=== PATIENT | male | born 1995 | race Caucasian/White ===

== ENCOUNTER → 2021-07-20 | Outpatient (CLI) | payer OTHER ==
--- NOTE | 2021-07-20 14:25 | RAD ---
XR KNEE 3 VIEWS_RT 07/20/2021 Reason: PAIN AND SWELLING SUPERIOR TO BOLT, HX ACL AND BOLD REPAIR 2009 Comparison: None Technique: 3 views of the right knee Findings: There is prior history of ACL repair. Inferior to the tibial anchor is a focus of calcification adjac ent to the cortex. No soft tissue calcifications seen superior to the tibial fixation screw. No evide nce of subluxation. The temporal horn joint space appears normal. No definite knee joint effusion. Impression: No evidence of acute osseous abnormality. There is ossification below the screw anchor at the tibial component which may relate to inferior component of the ACL repair. No osseous explanation for lump f elt superior to the tibial anchor. Electronically signed by: Lucho Wang (07/20/2021 2:23 PM) [id number]
== END ==
LOC: RAD 09:25
PROVIDERS: ATTEND Specialist
DX: M25.561 Pain in right knee (principal)
CPT/HCPCS: 73562